=== PATIENT | male | born 1970 | race Caucasian/White ===

== ENCOUNTER 2022-02-18 16:07 | Inpatient (IN) | payer OTHER ==
[2022-02-18 16:45] VITALS: BMI 27.3
[2022-02-18] MEDS ORDERED: SODIUM CHLORIDE 1,000 ML IV SCH (17:00)
[2022-02-18] MEDS ORDERED: SODIUM CHLORIDE 0.9% 500 ML INFUS.BAG IV ONE ×2 (17:28→18:44)
[2022-02-18 17:37] LABS: BASO % 0.6 % (0-2.0); EOS % 1.2 % (0-4.5); HEMATOCRIT 44.2 % (35.4-49); HEMOGLOBIN 15.3 GM/dL (11.7-16.9); LYMPH % 18.6 % (8-40); MCH 29.8 pg (25.7-33.7); MCHC 34.5 g/dl (32.0-35.9); MEAN CELL VOLUME 86.4 fl (80-96); MONO % 5.6 % (3.8-10.2); PLATELET COUNT 265 10^3/uL (134-434); RBC 5.12 M/mm3 (4.00-5.60); RDW 13.6 % (11.9-15.9); WHITE BLOOD COUNT 12.2 K/mm3 (4.0-10.0)
[2022-02-18 17:41] LABS: CALCIUM 8.9 mg/dL (8.5-10.1)
[2022-02-18 17:42] LABS: ALBUMIN 4.2 g/dl (3.4-5.0)
[2022-02-18 17:43] LABS: BLOOD UREA NITROGEN 18.5 mg/dL (7-18)
[2022-02-18 17:46] LABS: CREATININE 1.2 mg/dL (0.55-1.3)
[2022-02-18 17:47] LABS: TOT PROT 7.7 g/dl (6.4-8.2)
[2022-02-18 17:48] LABS: BILIRUBIN,TOTAL 0.4 mg/dL (0.2-1)
[2022-02-18 18:02] LABS: INR 1.01 (0.83-1.09); PROTHROMBIN TIME (PATIENT) 11.6 SEC (9.7-13.0)
[2022-02-18 21:54] LABS: ALBUMIN 3.8 g/dl (3.4-5.0); BLOOD UREA NITROGEN 15.9 mg/dL (7-18); CALCIUM 8.6 mg/dL (8.5-10.1)
[2022-02-18 21:57] LABS: CREATININE 1.1 mg/dL (0.55-1.3)
[2022-02-18 21:59] LABS: BILIRUBIN,TOTAL 0.3 mg/dL (0.2-1); TOT PROT 6.8 g/dl (6.4-8.2)
[2022-02-18 22:08] LABS: URINE APPEARANCE CLEAR; URINE BILIRUBIN NEGATIVE (NEGATIVE); URINE COLOR YELLOW; URINE GLUCOSE (UA) NEGATIVE (NEGATIVE); URINE KETONE NEGATIVE (NEGATIVE); URINE LEUK ESTERASE NEGATIVE (NEGATIVE); URINE NITRITE NEGATIVE (NEGATIVE); URINE PROTEIN NEGATIVE (NEGATIVE); URINE UROBILINOGEN 0.2 mg/dL (0.2-1.0)
[2022-02-19] MEDS ORDERED: POLYETHYLENE GLYCOL (HEALTHYLAX) 3350 17 GM PACKET ONE (06:20)
[2022-02-19] MEDS: POLYETHYLENE GLYCOL (HEALTHYLAX) 3350 17 GM PACKET PO SCH ×3 (06:33→22:17)
[2022-02-19] MEDS ORDERED: INSULIN SLIDING SCALE (NOVOLOG) 1 VIAL SQ SCH (07:00)
[2022-02-19 08:02] LABS: COCAINE, UR NEGATIVE (NEGATIVE); OPIATES, URI NEGATIVE (NEGATIVE); URINE BARBITURATES NEGATIVE (NEGATIVE)
[2022-02-19 08:03] LABS: METHADONE, UR NEGATIVE (NEGATIVE); PHENCYCLIDINE,URINE NEGATIVE (NEGATIVE)
[2022-02-19 08:04] LABS: URINE AMPHETAMINES NEGATIVE (NEGATIVE); URINE BENZODIAZEPINES NEGATIVE (NEGATIVE)
[2022-02-19 08:12] LABS: PH,URINE 6.5 (5.0-8.0); URINE APPEARANCE CLEAR; URINE BILIRUBIN NEGATIVE (NEGATIVE); URINE COLOR YELLOW; URINE GLUCOSE (UA) NEGATIVE (NEGATIVE); URINE KETONE NEGATIVE (NEGATIVE); URINE LEUK ESTERASE NEGATIVE (NEGATIVE); URINE NITRITE NEGATIVE (NEGATIVE); URINE PROTEIN NEGATIVE (NEGATIVE); URINE UROBILINOGEN 0.2 mg/dL (0.2-1.0)
[2022-02-19] MEDS ORDERED: DEXTROSE 50%-WATER - 25 GM/50 ML VIAL IVPUSH PRN (08:59)
[2022-02-19] MEDS: SODIUM CHLORIDE 1,000 ML IV SCH (09:00)
[2022-02-19 09:12] LABS: HEMATOCRIT 43.8 % (35.4-49); MCH 29.7 pg (25.7-33.7); MCHC 34.3 g/dl (32.0-35.9); MEAN CELL VOLUME 86.4 fl (80-96); MEAN PLT VOLUME 8.9 fl (7.5-11.1); PLATELET COUNT 249 10^3/uL (134-434); RBC 5.07 M/mm3 (4.00-5.60); RDW 13.8 % (11.9-15.9); WHITE BLOOD COUNT 8.1 K/mm3 (4.0-10.0)
[2022-02-19] MEDS ORDERED: ENOXAPARIN NA (PORCINE) 40 MG/0.4 ML DISP.SYRIN SQ ONE (09:41)
[2022-02-19] MEDS ORDERED: LISINOPRIL 20 MG TABLET ONE (09:41)
[2022-02-19 09:44] LABS: CALCIUM 8.8 mg/dL (8.5-10.1)
[2022-02-19 09:45] LABS: ALBUMIN 4.1 g/dl (3.4-5.0); BLOOD UREA NITROGEN 13.2 mg/dL (7-18); MAGNESIUM 2.1 mg/dL (1.8-2.4)
[2022-02-19 09:46] LABS: BILIRUBIN,TOTAL 0.7 mg/dL (0.2-1); CREATININE 1.1 mg/dL (0.55-1.3); PHOSPHOROUS 2.6 mg/dL (2.5-4.9)
[2022-02-19 09:48] LABS: TOT PROT 7.2 g/dl (6.4-8.2)
[2022-02-19] MEDS ORDERED: HYDROCHLOROTHIAZIDE 12.5 MG CAPSULE (FP) PO SCH (10:00)
[2022-02-19] MEDS: ENOXAPARIN NA (PORCINE) 40 MG/0.4 ML DISP.SYRIN SQ SCH (10:30)
[2022-02-19] MEDS: LISINOPRIL 20 MG TABLET PO SCH (10:50)
[2022-02-19] MEDS: INSULIN SLIDING SCALE (NOVOLOG) 1 VIAL SQ SCH ×3 (10:51→22:19)
[2022-02-19] MEDS ORDERED: ATORVASTATIN CA 40 MG TABLET (FP) PO SCH (22:00)
[2022-02-20] MEDS: INSULIN SLIDING SCALE (NOVOLOG) 1 VIAL SQ SCH ×2 (06:13→11:49)
[2022-02-20] MEDS: SODIUM CHLORIDE 1,000 ML IV SCH ×2 (06:55→09:26)
[2022-02-20] MEDS: POLYETHYLENE GLYCOL (HEALTHYLAX) 3350 17 GM PACKET PO SCH (06:56)
[2022-02-20 07:18] LABS: HEMATOCRIT 43.7 % (35.4-49); MCH 29.7 pg (25.7-33.7); MCHC 34.2 g/dl (32.0-35.9); MEAN CELL VOLUME 86.9 fl (80-96); MEAN PLT VOLUME 8.8 fl (7.5-11.1); PLATELET COUNT 239 10^3/uL (134-434); RBC 5.03 M/mm3 (4.00-5.60); RDW 13.8 % (11.9-15.9); WHITE BLOOD COUNT 8.9 K/mm3 (4.0-10.0)
[2022-02-20 07:46] LABS: CALCIUM 8.7 mg/dL (8.5-10.1)
[2022-02-20 07:47] LABS: BLOOD UREA NITROGEN 16.2 mg/dL (7-18)
[2022-02-20 08:38] VITALS: BP 125/72; PULSE 88; RESP 18; TEMP 98.8
[2022-02-20] MEDS: ENOXAPARIN NA (PORCINE) 40 MG/0.4 ML DISP.SYRIN SQ SCH (09:27)
[2022-02-20] MEDS: LISINOPRIL 20 MG TABLET PO SCH (09:27)
== END 2022-02-20 12:39 | disposition home or self-care (01) | DRG 463 ==
LOC: JER 16:07 → JERBED 19:03 → OBSVTOIN 20:20 → J4W 02-19 14:37
PROVIDERS: ADMIT Internal Medicine; ATTEND Internal Medicine
DX: N39.0 Urinary tract infection, site not specified (principal); R55 Syncope and collapse; I10 Essential (primary) hypertension; H53.8 Other visual disturbances; E78.5 Hyperlipidemia, unspecified; E11.40 Type 2 diabetes mellitus with diabetic neuropathy, unspecified; D72.829 Elevated white blood cell count, unspecified; K59.09 Other constipation; I16.0 Hypertensive urgency; B96.20 Unspecified Escherichia coli [E. coli] as the cause of diseases classified elsewhere; E86.0 Dehydration; F41.9 Anxiety disorder, unspecified; R00.0 Tachycardia, unspecified; R51.9 Headache, unspecified; R53.1 Weakness
CPT/HCPCS: 36415; 70450-TC; 74178-TC; 80048; 80053; 80061; 80307; 81003; 82550; 82553; 82962; 83036; 83735; 84100; 84443; 84484; 85025; 85027; 85379; 85610; 85730; 86850; 86900; 86901; 87086; 87186; 93005; 93010; 93306-TC; 93880-TC; 99285-25; C9803-CS; G0378; Q9967; U0003; U0005

== ENCOUNTER 2022-10-16 15:30 | Emergency (ER) | payer OTHER ==
[2022-10-16 15:45] VITALS: RESP 18; BMI 28.8
[2022-10-16] MEDS ORDERED: SODIUM CHLORIDE 0.9% 500 ML INFUS.BAG IV ONE (16:26)
[2022-10-16 17:14] LABS: BASO % 0.7 % (0-2.0); EOS % 3.9 % (0-4.5); HEMATOCRIT 45.7 % (35.4-49); HEMOGLOBIN 15.8 GM/dL (11.7-16.9); LYMPH % 14.3 % (8-40); MCH 30.8 pg (25.7-33.7); MCHC 34.6 g/dl (32.0-35.9); MEAN PLT VOLUME 8.7 fl (7.5-11.1); MONO % 6.5 % (3.8-10.2); NEUT % 74.6 % (42.8-82.8); PLATELET COUNT 254 10^3/uL (134-434); RBC 5.13 M/mm3 (4.00-5.60); RDW 13.6 % (11.9-15.9); WHITE BLOOD COUNT 9.5 K/mm3 (4.0-10.0)
[2022-10-16 17:40] LABS: CALCIUM 8.9 mg/dL (8.5-10.1)
[2022-10-16 17:42] LABS: BLOOD UREA NITROGEN 20.6 mg/dL (7-18)
[2022-10-16 17:44] LABS: CREATININE 1.1 mg/dL (0.55-1.3)
[2022-10-16 17:46] LABS: BILIRUBIN,TOTAL 0.3 mg/dL (0.2-1); TOT PROT 7.2 g/dl (6.4-8.2)
[2022-10-16] MEDS ORDERED: chlordiazePOXIDE HCL 25 MG CAPSULE PO ONE (18:57)
[2022-10-16] MEDS ORDERED: LORazepam 2 MG/ML SDV VIAL IVPUSH ONE (18:59)
[2022-10-16 19:43] VITALS: BP 139/71; PULSE 95; TEMP 98.1
== END 2022-10-16 19:56 | disposition left against medical advice (07) ==
LOC: JER 15:30
DX: R61 Generalized hyperhidrosis (principal); H53.8 Other visual disturbances
CPT/HCPCS: 36415; 70450-TC; 71046-TC-FY; 80053; 82962; 84484; 85025; 93005; 93010; 99285-25